=== PATIENT | male | born 1955 | race Hispanic/Latino ===

== ENCOUNTER 2017-11-06 20:02 | Observation (INO) | payer SELFPAY ==
[2017-11-06] MEDS ORDERED: ONDANSETRON 4 MG/2 ML VIAL ONE (20:40)
[2017-11-06] MEDS ORDERED: NA CHLORIDE 0.9% 1,000 ML ONE (20:40)
--- NOTE | 2017-11-06 20:56 | RAD REPORT ---
EXAM DESCRIPTION: RAD - Chest Single View - 11/06/2017 8:46 pm CLINICAL HISTORY: Abdominal pain COMPARISON: None. TECHNIQUE: AP portable chest image was obtained 2043 hours . FINDINGS: No mass, consolidation or vascular engorgement. Interstitial markings are prominent with b aseline for the patient unknown. Interstitial edema and interstitial infiltrate are certainly possibl e. Heart and vasculature are normal. No measurable pleural effusion and no pneumothorax. No gross bon y abnormality seen. No acute aortic findings suspected. IMPRESSION: No mass or consolidation. Prominent lung markings. As a baseline study, interstitial edema, infiltrate or early failure/ volume overload cannot be excluded.
[2017-11-06 21:21] LABS: Absolute Lymphocytes (CBC) 2.5 K/uL (0.7-4.9); Absolute Monocytes 0.5 K/uL (0.1-1.3); Absolute Neutrophil 2.9 K/uL (1.8-8.0); Basophils % 2.2 % (0-1.3); Eosinophils % 6.4 % (0-4.4); Lymphocytes % 38.5 % (15.3-44.8); MCH 29.5 pg (27.0-35.0); MCV 88.2 fL (80-100); MPV 8.6 fL (7.6-11.3); Monocytes % 7.9 % (3.3-12.3); RBC Red Blood Cell Count 5.22 M/uL (4.33-5.43)
[2017-11-06 21:23] LABS: Protime INR 1.06
[2017-11-06 21:29] LABS: ALT/SGPT 17 U/L (12-78); AST/SGOT 13 U/L (15-37); Albumin 3.2 g/dL (3.4-5.0); Alkaline Phosphatase 84 U/L (45-117); BUN Blood Urea Nitrogen 11 mg/dL (7-18); Bicarbonate 27 mmol/L (21-32); Bilirubin Direct < 0.1 mg/dL (0-0.2); Bilirubin Total 0.2 mg/dL (0.2-1.0); CKMB Creatine Kinase MB < 1.0 ng/mL (0.3-3.6); Creatine Phosphokinase 33 U/L (39-308); Glucose Level 83 mg/dL (74-106); Lipase 144 U/L (73-393); Magnesium 2.4 mg/dL (1.8-2.4); NT PRO-BNP 160 pg/mL (<125); Potassium 3.7 mmol/L (3.5-5.1); Protein, Total 7.3 g/dL (6.4-8.2); Sodium Level 142 mmol/L (136-145); Troponin (Emerg Dept Use Only) < 0.02 ng/mL (0.0-0.045)
[2017-11-06] MEDS ORDERED: ACETAMINOPHEN 500 MG TAB PO PRN (21:33)
[2017-11-06] MEDS ORDERED: MORPHINE 4 MG/ML SYR IV PRN (21:33)
[2017-11-06] MEDS ORDERED: ONDANSETRON 4 MG/2 ML VIAL IV PRN (21:33)
--- NOTE | 2017-11-06 21:57 | ER ---
Nurse's Notes [facility] Name: Kushal Bah Age: 61 yrs Sex: Male : 1955 Arrival Date: 11/06/2017 Time: 20:07 Bed 25 Private MD: Diagnosis: Abdominal tenderness;Cholelithiasis;Cholecystitis Presentation: 11/06 20:09 Presenting complaint: Patient states: He has been having RUQ abdominal pain that aj1 radiates to the back for the last couple of months. When the pain becomes severe he starts having nausea and vomiting. Patient has not seen his PHCP regarding this complaint. Reports the pain is intermittent and seems to come out of nowhere. Transition of care: patient was not received from another setting of care. Onset of symptoms was 2017. Risk Assessment: Do you want to hurt yourself or someone else? Patient reports no desire to harm self or others. Initial Sepsis Screen: Does the patient meet any 2 criteria? No. Patient's initial sepsis screen is negative. Does the patient have a suspected source of infection? No. Patient's initial sepsis screen is negative. Care prior to arrival: None. 20:09 Method Of Arrival: Ambulatory aj1 20:09 Acuity: MAGDA 3 aj1 Triage Assessment: 20:12 General: Appears in no apparent distress. uncomfortable, Behavior is calm, cooperative, aj1 appropriate for age. Pain: Complains of pain in right upper quadrant Pain does not radiate. Pain currently is 9 out of 10 on a pain scale. Neuro: Level of Consciousness is awake, alert, obeys commands. Cardiovascular: Patient's skin is warm and dry. Respiratory: Airway is patent Respiratory effort is even, unlabored, Respiratory pattern is regular, symmetrical. GI: Reports upper abdominal pain, nausea, vomiting. Historical: - Allergies: 20:12 No Known Allergies; aj1 - Home Meds: 20:12 None [Active]; aj1 - PMHx: 20:12 None; aj1 - PSHx: 20:12 None; aj1 - Immunization history:: Flu vaccine is not up to date. - Social history:: Smoking status: Patient uses tobacco products, 5 - 6 cigarettes perday. - Ebola Screening: : Patient denies travel to an Ebola-affected area in the 21 days before illness onset. - Family history:: not pertinent. Screenin:20 Abuse screen: Denies threats or abuse. Denies injuries from another. Nutritional bp screening: No deficits noted. Tuberculosis screening: No symptoms or risk factors identified. Fall Risk None identified. Assessment: 20:15 General: Appears in no apparent distress. comfortable, Behavior is calm, cooperative, bp appropriate for age. Pain: Complains of pain in right upper quadrant. Neuro: Level of Consciousness is awake, alert, obeys commands, Oriented to person, place, time, situation, Appropriate for age. Cardiovascular: No deficits noted. Respiratory: Airway is patent Respiratory effort is even, unlabored, Respiratory pattern is regular, symmetrical. GI: Bowel sounds present X 4 quads. Abdomen is tender to palpation in right upper quadrant. : No signs and/or symptoms were reported regarding the genitourinary system. EENT: No deficits noted. Derm: No deficits noted. Musculoskeletal: Circulation, motion, and sensation intact. Range of motion: intact in all extremities. 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 bp 23:44 Reassessment: ADMIT IN PROCESS, SURG C/S PENDING. bp Vital Signs: 20:12 BP 122 / 71; Pulse 60; Resp 16; Temp 97.5(TE); Pulse Ox 95% on R/A; Weight 79.38 kg aj1 (R); Height 5 ft. 5 in. (165.10 cm); Pain 9/10; 21:18 BP 106 / 68; Pulse 43; Resp 14; Pulse Ox 96% ; bp 22:15 BP 107 / 80; Pulse 47; Resp 14; Pulse Ox 95% ; bp 23:45 BP 120 / 70; Pulse 57; Resp 14; Pulse Ox 95% ; bp 09/13 00:15 BP 103 / 66; Pulse 46; Resp 14; Pulse Ox 94% ; bp 09/12 20:12 Body Mass Index 29.12 (79.38 kg, 165.10 cm) aj1 ED Course: 11/06 20:07 Patient arrived in ED. al2 20:11 Triage completed. aj1 20:12 Arm band placed on Patient placed in an exam room. aj1 20:14 Bertin Bowling MD is Attending Physician. [facility] 20:15 Jeff Smart, CONOR is Primary Nurse. bp 20:30 Inserted saline lock: 20 gauge in left antecubital area, using aseptic technique. Blood bp collected. 20:45 XRAY Chest (1 view) In Process Unspecified. EDMS 21:20 Patient has correct armband on for positive identification. Bed in low position. Call bp light in reach. Side rails up X2. Adult w/ patient. 21:30 Ga Mota MD is Hospitalizing Provider. [facility] 22:02 Patient taken to ultrasound. 2 22:[address] via wheelchair. vm2 23:45 No provider procedures requiring assistance completed. Patient admitted, IV remains in bp place. Administered Medications: 20:30 Drug: NS 0.9% 1000 ml Route: IV; Rate: 1 bolus; Site: left antecubital; bp 22:00 Follow up: IV Status: Completed infusion; IV Intake: 1000ml bp 22:09 Follow up: IV Status: Completed infusion; IV Intake: 1000ml tl3 20:45 Drug: Zofran 4 mg Route: IVP; Site: left antecubital; bp 21:07 Follow up: Response: No adverse reaction bp 22:00 Drug: Zosyn 3.375 grams Route: IVPB; Infused Over: 60 mins; Site: left antecubital; bp 11/07 00:11 Follow up: IV Status: Completed infusion; IV Intake: 100ml bp 11/06 23:47 Not Given (Patient Refused): Pepcid 20 mg IVP once bp Intake: 22:00 IV: 1000ml; Total: 1000ml. bp 22:09 IV: 1000ml; Total: 2000ml. tl3 11/07 00:11 IV: 100ml; Total: 2100ml. bp Outcome: 11/06 21:31 Decision to Hospitalize by Provider. [facility] 23:45 Condition: stable bp 23:45 Instructed on the need for admit. 11/07 00:11 Admitted to Med/surg accompanied by tech, family with patient, via wheelchair, room bp 410, with chart, Report called to LEIA PERDOMO 00:44 Patient left the ED. tl3 Signatures: Dispatcher [employer] EDMS Maral Vera, RN RN aj1 Bertin Bowling MD MD cha McGuire, Victoria 2 Jeff Smart, Rachel Keene RN meHeavenly Green RN RN tl3
--- NOTE | 2017-11-06 21:58 | EDPHYS ---
Physician Documentation [facility] Name: Kushal Bah Age: 61 yrs Sex: Male : 1955 Arrival Date: 11/06/2017 Time: 20:07 Bed 25 Private MD: ED Physician Bertin Bowling HPI: 11/06 21:26 This 61 yrs old Male presents to ER via Ambulatory with complaints of cody Abdominal Pain. 21:26 The patient presents with abdominal pain in the epigastric area, in the upper abdomen, cody in the right upper quadrant. Onset: The symptoms/episode began/occurred 1 day(s) ago. The symptoms do not radiate. Associated signs and symptoms: none. The symptoms are described as constant, crampy. Modifying factors: The symptoms are alleviated by nothing, the symptoms are aggravated by movement, pressure, walking. Severity of pain: At its worst the pain was mild moderate in the emergency department the pain is unchanged. The patient has not experienced similar symptoms in the past. Historical: - Allergies: 20:12 No Known Allergies; aj1 - Home Meds: 20:12 None [Active]; aj1 - PMHx: 20:12 None; aj1 - PSHx: 20:12 None; aj1 - Immunization history:: Flu vaccine is not up to date. - Social history:: Smoking status: Patient uses tobacco products, 5 - 6 cigarettes perday. - Ebola Screening: : Patient denies travel to an Ebola-affected area in the 21 days before illness onset. - Family history:: not pertinent. ROS: 21:26 Constitutional: Negative for fever, chills, and weight loss, Eyes: Negative for injury, cody pain, redness, and discharge, ENT: Negative for injury, pain, and discharge, Neck: Negative for injury, pain, and swelling, Cardiovascular: Negative for chest pain, palpitations, and edema, Respiratory: Negative for shortness of breath, cough, wheezing, and pleuritic chest pain, Back: Negative for injury and pain, : Negative for injury, bleeding, discharge, and swelling, MS/Extremity: Negative for injury and deformity, Skin: Negative for injury, rash, and discoloration, Neuro: Negative for headache, weakness, numbness, tingling, and seizure, Psych: Negative for depression, anxiety, suicide ideation, homicidal ideation, and hallucinations, Allergy/Immunology: Negative for hives, rash, and allergies, Endocrine: Negative for neck swelling, polydipsia, polyuria, polyphagia, and marked weight changes, Hematologic/Lymphatic: Negative for swollen nodes, abnormal bleeding, and unusual bruising. 21:26 Abdomen/GI: Positive for abdominal pain, of the epigastric area and right upper quadrant. Exam: 21:26 Constitutional: This is a well developed, well nourished patient who is awake, alert, cody and in no acute distress. Head/Face: Normocephalic, atraumatic. Eyes: Pupils equal round and reactive to light, extra-ocular motions intact. Lids and lashes normal. Conjunctiva and sclera are non-icteric and not injected. Cornea within normal limits. Periorbital areas with no swelling, redness, or edema. ENT: Nares patent. No nasal discharge, no septal abnormalities noted. Tympanic membranes are normal and external auditory canals are clear. Oropharynx with no redness, swelling, or masses, exudates, or evidence of obstruction, uvula midline. Mucous membranes moist. Neck: Trachea midline, no thyromegaly or masses palpated, and no cervical lymphadenopathy. Supple, full range of motion without nuchal rigidity, or vertebral point tenderness. No Meningismus. Chest/axilla: Normal chest wall appearance and motion. Nontender with no deformity. No lesions are appreciated. Cardiovascular: Regular rate and rhythm with a normal S1 and S2. No gallops, murmurs, or rubs. Normal PMI, no JVD. No pulse deficits. Respiratory: Lungs have equal breath sounds bilaterally, clear to auscultation and percussion. No rales, rhonchi or wheezes noted. No increased work of breathing, no retractions or nasal flaring. Back: No spinal tenderness. No costovertebral tenderness. Full range of motion. Male : Normal genitalia with no discharge or lesions. Skin: Warm, dry with normal turgor. Normal color with no rashes, no lesions, and no evidence of cellulitis. MS/ Extremity: Pulses equal, no cyanosis. Neurovascular intact. Full, normal range of motion. Neuro: Awake and alert, GCS 15, oriented to person, place, time, and situation. Cranial nerves II-XII grossly intact. Motor strength 5/5 in all extremities. Sensory grossly intact. Cerebellar exam normal. Normal gait. Psych: Awake, alert, with orientation to person, place and time. Behavior, mood, and affect are within normal limits. 21:26 Abdomen/GI: Inspection: distension, Bowel sounds: normal, Palpation: mild abdominal tenderness, moderate abdominal tenderness, in the right upper quadrant. Vital Signs: 20:12 BP 122 / 71; Pulse 60; Resp 16; Temp 97.5(TE); Pulse Ox 95% on R/A; Weight 79.38 kg aj1 (R); Height 5 ft. 5 in. (165.10 cm); Pain 9/10; 21:18 BP 106 / 68; Pulse 43; Resp 14; Pulse Ox 96% ; bp 22:15 BP 107 / 80; Pulse 47; Resp 14; Pulse Ox 95% ; bp 23:45 BP 120 / 70; Pulse 57; Resp 14; Pulse Ox 95% ; bp 11/07 00:15 BP 103 / 66; Pulse 46; Resp 14; Pulse Ox 94% ; bp 11/06 20:12 Body Mass Index 29.12 (79.38 kg, 165.10 cm) [facility] MDM: 11/06 20:14 Patient medically screened. [facility] 21:29 Data reviewed: vital signs, nurses notes, lab test result(s), EKG, radiologic studies, [facility] CT scan, plain films. 11/06 20:19 Order name: Basic Metabolic Panel; Complete Time: 21:30 [facility] 11/06 20:19 Order name: CBC with Diff; Complete Time: 21:30 [facility] 11/06 20:19 Order name: Ckmb; Complete Time: 21:30 [facility] 11/06 20:19 Order name: CPK; Complete Time: 21:30 [facility] 11/06 20:19 Order name: LFT's; Complete Time: 21:30 [facility] 11/06 20:19 Order name: Magnesium; Complete Time: 21:30 [facility] 11/06 20:19 Order name: NT PRO-BNP; Complete Time: 21:30 [facility] 11/06 20:19 Order name: PT-INR; Complete Time: 21:30 [facility] 11/06 20:19 Order name: Ptt, Activated; Complete Time: 21:30 [facility] 11/06 20:19 Order name: Troponin (emerg Dept Use Only); Complete Time: 21:30 [facility] 11/06 20:19 Order name: Lipase; Complete Time: 21:30 [facility] 11/06 20:19 Order name: Urine Culture [facility] 11/06 21:01 Order name: Urine Dipstick--Ancillary (enter results) [place] 11/06 21:35 Order name: Basic Metabolic Panel [facility] 11/06 20:19 Order name: XRAY Chest (1 view); Complete Time: 21:30 [facility] 11/06 20:19 Order name: EKG; Complete Time: 20:20 [facility] 11/06 20:19 Order name: CT Abd/Pelvis - W/Contrast [facility] 11/06 20:56 Order name: US Abdomen Limited [facility] 11/06 21:35 Order name: Basic Metabolic Panel [facility] 11/06 21:35 Order name: CBC with Automated Diff [facility] 11/06 21:35 Order name: CBC with Automated Diff [facility] 11/06 21:35 Order name: Lipase [facility] 11/06 21:35 Order name: Lipase [facility] 11/06 21:35 Order name: Liver (Hepatic) Function [facility] 11/06 21:35 Order name: Liver (Hepatic) Function [facility] 11/06 22:18 Order name: Urine Dipstick-Ancillary [facility] 11/06 20:19 Order name: Cardiac monitoring; Complete Time: 21:08 [facility] 11/06 20:19 Order name: EKG - Nurse/Tech; Complete Time: 21:08 [facility] 11/06 20:19 Order name: IV Saline Lock; Complete Time: 21:08 [facility] 11/06 20:19 Order name: Labs collected and sent; Complete Time: 21:08 [facility] 11/06 20:19 Order name: O2 Per Protocol; Complete Time: 21:08 [facility] 11/06 20:19 Order name: O2 Sat Monitoring; Complete Time: 21:08 [facility] 11/06 20:19 Order name: Urine Dipstick-Ancillary (obtain specimen); Complete Time: 21:08 [facility] 11/06 21:35 Order name: NPO EDMS Administered Medications: 20:30 Drug: NS 0.9% 1000 ml Route: IV; Rate: 1 bolus; Site: left antecubital; bp 22:00 Follow up: IV Status: Completed infusion; IV Intake: 1000ml bp 22:09 Follow up: IV Status: Completed infusion; IV Intake: 1000ml tl3 20:45 Drug: Zofran 4 mg Route: IVP; Site: left antecubital; bp 21:07 Follow up: Response: No adverse reaction bp 22:00 Drug: Zosyn 3.375 grams Route: IVPB; Infused Over: 60 mins; Site: left antecubital; bp 11/07 00:11 Follow up: IV Status: Completed infusion; IV Intake: 100ml bp 11/06 23:47 Not Given (Patient Refused): Pepcid 20 mg IVP once bp Disposition: 11/06/17 21:31 Hospitalization ordered by Ga Mota for Observation. Preliminary diagnosis are Abdominal tenderness, Cholelithiasis, Cholecystitis. - Bed requested for Telemetry/MedSurg (observation). - Status is Observation. tl3 - Condition is Stable. - Problem is new. - Symptoms have improved. UTI on Admission? No Signatures: Dispatcher [employer] EDMS Maral Vera RN RN aj1 Le Koch RN RN Bertin Loya MD MD cha Peltier, Brian RN RN Heavenly Vasquez RN RN tl3 Corrections: (The following items were deleted from the chart) 22:20 21:31 Hospitalization Ordered by Ga Mota MD for Observation. Preliminary diagnosis is Abdominal tenderness; Cholelithiasis; Cholecystitis. Bed requested for Telemetry/MedSurg (observation). Status is Observation. Condition is Stable. Problem is new. Symptoms have improved. UTI on Admission? No. [facility] 11/07 00:44 11/06 22:20 11/06/2017 21:31 Hospitalization Ordered by Ga Mota MD for tl3 Observation. Preliminary diagnosis is Abdominal tenderness; Cholelithiasis; Cholecystitis. Bed requested for Telemetry/MedSurg (observation). Status is Observation. Condition is Stable. Problem is new. Symptoms have improved. UTI on Admission? No. mw
[2017-11-06 22:17] LABS: Urine Blood NEGATIVE (NEG); Urine Glucose NEGATIVE (NEG); Urine Protein NEGATIVE (NEG)
[2017-11-06] MEDS ORDERED: PIPER/TAZO/NS 3.375gm 3.375 GM/100 ML BAG ONE (23:44)
[2017-11-07] MEDS: NA CHLORIDE 0.9% 1,000 ML IV SCH ×3 (01:22→09:46)
[2017-11-07 02:59] VITALS: BMI 29.1
[2017-11-07 04:30] LABS: Absolute Lymphocytes (CBC) 2.9 K/uL (0.7-4.9); Absolute Monocytes 0.4 K/uL (0.1-1.3); Absolute Neutrophil 2.6 K/uL (1.8-8.0); Basophils % 0.6 % (0-1.3); Eosinophils % 6.4 % (0-4.4); Hematocrit 42.1 % (39.6-49.0); Lymphocytes % 45.7 % (15.3-44.8); MCH 29.3 pg (27.0-35.0); MCV 87.2 fL (80-100); MPV 8.4 fL (7.6-11.3); Monocytes % 6.2 % (3.3-12.3); RBC Red Blood Cell Count 4.83 M/uL (4.33-5.43)
[2017-11-07 04:47] LABS: ALT/SGPT 15 U/L (12-78); AST/SGOT 10 U/L (15-37); Albumin 2.8 g/dL (3.4-5.0); Alkaline Phosphatase 68 U/L (45-117); BUN Blood Urea Nitrogen 8 mg/dL (7-18); Bicarbonate 25 mmol/L (21-32); Bilirubin Direct < 0.1 mg/dL (0-0.2); Bilirubin Total 0.2 mg/dL (0.2-1.0); Glucose Level 87 mg/dL (74-106); Lipase 98 U/L (73-393); Protein, Total 6.2 g/dL (6.4-8.2); Sodium Level 141 mmol/L (136-145)
[2017-11-07] MEDS: PIPER/TAZO/NS 3.375gm 3.375 GM/100 ML BAG IVPB SCH ×4 (06:00→17:42)
[2017-11-07] MEDS ORDERED: PIPER/TAZO/NS 3.375gm 3.375 GM/100 ML BAG ONE (06:51)
--- NOTE | 2017-11-07 08:11 | RAD REPORT ---
EXAM DESCRIPTION: CT - Abdomen Pelvis W Contrast - 11/07/2017 5:22 am CLINICAL HISTORY: Abdominal pain. Right upper quadrant pain with vomiting COMPARISON: None. TECHNIQUE: Computed axial tomography of the abdomen and pelvis was obtained. 100 cc Isovue-300 is ad ministered intravenously. Oral contrast was given. Preliminary report was generated by [employer] and reviewed prior to this dictation All CT scans are performed using dose optimization technique as appropriate and may include automated exposure control or mA/KV adjustment according to patient size. FINDINGS: A gallstone is present within the neck of the gallbladder. Mild gallbladder wall thickening is seen w ith mild stranding in the adjacent fat. The biliary tree is normal caliber The liver, spleen, pancreas, adrenals and kidneys appear unremarkable. The appendix is normal caliber. There is no evidence of diverticulitis Small bilateral inguinal hernias contain fat. Mild anterior subluxation of L5 on S1 is seen. Spondylo lysis is present at L5. IMPRESSION: Cholelithiasis. Mild gallbladder wall thickening and mild stranding within the adjacent probably indicates cholecystitis
--- NOTE | 2017-11-07 08:13 | RAD REPORT ---
EXAM DESCRIPTION: US - Abdomen Exam Limited - 11/06/2017 10:28 pm CLINICAL HISTORY: Abdominal pain. COMPARISON: None. FINDINGS: A stone appears lodged within the gallbladder neck. Mild gallbladder wall thickening is se en. The biliary tree is normal caliber. IMPRESSION: Cholelithiasis. Mild gallbladder wall thickening may indicate cholecystitis
[2017-11-07] MEDS: FAMOTIDINE 20 MG/2 ML VIAL IV SCH (09:47)
--- NOTE | 2017-11-07 11:06 | EKG ---
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
--- NOTE | 2017-11-07 17:40 | P.HP ---
Date of Service: 11/07/17 PC: This 61-year-old male presented emergency room severe right upper quadrant abdominal pain for diagnosis and treatment. HPC: Patient been experiencing some right upper quadrant abdominal pain, radiating into his back, after eating a meal this evening. Pain became very severe, radiating to his back, was unrelenting. 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 No chest pain or palpitations. Denies any urinary complaints. Good exercise tolerance O/E awake alert comfortable at the moment HEENT: Not jaundice Chest: Chest movement is equal bilaterally ABD: Mild right upper quadrant tenderness LOCO: Into DATA: Has documented gallstones on ultrasound with stone near the neck of the gallbladder IMPRESSION: Cholecystitis with cholelithiasis PLAN: I will take him to the operating room for a laparoscopic possible open cholecystectomy with intraoperative cholangiogram. The risks of this procedure have been discussed. The possibility of bleeding, infection, injury to bile ducts blood vessels and intestines has been described. The possible need for an open and/or further surgeries and procedures was outlined. He understands and wants us to proceed.
[2017-11-08] MEDS: NA CHLORIDE 0.9% 1,000 ML IV SCH ×4 (02:19→22:05)
[2017-11-08] MEDS: FAMOTIDINE 20 MG/2 ML VIAL IV SCH ×3 (02:19→22:05)
[2017-11-08] MEDS: PIPER/TAZO/NS 3.375gm 3.375 GM/100 ML BAG IVPB SCH ×4 (02:19→17:00)
[2017-11-08] MEDS ORDERED: PROPOFOL 200 MG/20 ML VIAL IV ONE (07:19)
[2017-11-08] MEDS ORDERED: MIDAZOLAM HCL 2 MG/2 ML INJ ONE (07:19)
[2017-11-08] MEDS ORDERED: GLYCOPYRROLATE 0.2 MG/ML SYR ONE (07:20)
[2017-11-08] MEDS ORDERED: FENTANYL CITR 250 MCG/5 ML ONE (07:20)
[2017-11-08] MEDS ORDERED: LIDOCAINE 2% MPF 5 ML VIAL ONE (07:20)
[2017-11-08] MEDS ORDERED: Ringers Lactate 1,000 ML IV ONE (07:21)
[2017-11-08] MEDS ORDERED: BUPIVACAINE 0.5% PF 10 ML VIAL ONE (07:24)
[2017-11-08] MEDS: Ringers Lactate 1,000 ML IV ONE ×2 (08:45→10:40)
[2017-11-08] MEDS ORDERED: ONDANSETRON 4 MG/2 ML VIAL ONE (09:07)
[2017-11-08] MEDS ORDERED: ROCURONIUM 50 MG/5 ML VIAL IV ONE (09:07)
[2017-11-08] MEDS ORDERED: MEPERIDINE HCL 50 MG/ML AMP ONE (09:51)
[2017-11-08] MEDS ORDERED: HYDROCODONE/APAP 5/325 MG TAB PO PRN (13:23)
--- NOTE | 2017-11-08 14:58 | RAD REPORT ---
EXAM DESCRIPTION: RAD - Cholangiogram Oper-Xray Or - 11/08/2017 2:49 pm FINDINGS: Single image was submitted from an intraoperative cholangiogram. Contrast opacified common bile duct shows no duct stone, stricture or mass. There is small amount of spill or contrast leakage at the injection site into the cystic duct. Fluoro time was 0.2 minutes.
[2017-11-09] MEDS: NA CHLORIDE 0.9% 1,000 ML IV SCH ×2 (01:14→14:00)
[2017-11-09] MEDS: PIPER/TAZO/NS 3.375gm 3.375 GM/100 ML BAG IVPB SCH ×2 (01:14→11:12)
[2017-11-09] MEDS: FAMOTIDINE 20 MG/2 ML VIAL IV SCH (11:12)
[2017-11-09 12:53] VITALS: BP 122/67; TEMP 98.3
--- NOTE | 2017-11-09 13:41 | P.PN ---
Date of Service: 11/09/17 S: Patient feels better today, has been up and ambulating, tolerating a diet. Complaints. O: Vital signs are stable A: Stable status post laparoscopic cholecystectomy with cholangiogram P: Discharge home
[2017-11-09 16:16] VITALS: O2SAT 93
== END 2017-11-09 15:36 | disposition home or self-care (01) ==
LOC: ER 20:02 → ERHOLD 21:32 → 4TH 11-07 00:04
PROVIDERS: ADMIT Surgery; ATTEND Surgery
PROC: BF00YZZ Plain Radiography of Bile Ducts using Other Contrast (ICD-10-PCS; 2017-11-08)
PROC: 0FT44ZZ Resection of Gallbladder, Percutaneous Endoscopic Approach (ICD-10-PCS; principal; 2017-11-08 07:30)
DX: K80.10 Calculus of gallbladder with chronic cholecystitis without obstruction (principal)
CPT/HCPCS: 36415; 71045; 74177; 74300; 76705; 80048; 80076; 81003; 82550; 82553; 82962; 83690; 83735; 83880; 84484; 85025; 85610; 85730; 87086; 87088; 88304; 93005; 96361; 96365; 96366; 96375; 99285; G0378; J2175; J2250; J2405; J2543; J7030; Q9967

== ENCOUNTER 2023-10-25 16:53 | Emergency (ER) | payer OTHER ==
--- OUTSIDE RECORDS SUMMARY | 2023-10-25 16:58 | XMS REPORT | Continuity of Care Document ---
Author Name Unknown Address [address] [facility] [address] [place] [address] [facility] thconnect Address [address] [place] [address] Care Team Providers Care Engine Lathe Set Up Operator Tool Name Role Phone George Castillo NP Primary Care Physician [phone] SOCORRO KHANNA Attending Clinician Unavailable Doctor Unassigned, [place] Attending Clinician U Socorro Fabian MD Attending Clinician [phone] GEORGE CASTILLO Attending Clinician UnavailGEORGE Thayer Attending Clinician UnavailEUSEBIA Echeverria Attending Clinician UnavailEusebia Pandya Attending Clinician [phone] ALONZO HUANG Attending Clinician Unavailable Alonzo Huang DO Attending Clinician [phone] SOCORRO KHANNA Admitting Clinician Unavailable ALONZO HUANG Admitting Clinician Unavailable Payers Payer Name Policy Type Policy Number Effective Date Expirati on Date Source MEDICARE PART A \T\ B [id number] 2020 00:00:00 Problems Condition Name Condition Details Condition Category Status Onset Date Resolution Date Last Treatment Date Treating Clinician Comments Source Other open displaced fracture of tuberosity of left calcaneus, initial encounter Other open displaced fracture of tuberosity of left calcaneus, initial encounter Disease Active 09-04 00:00: 00 Overview: Formattin g of this note might be different from the original. Added automatic ally from request for surgery [id number] [facility] Closed nondisplac ed fracture of left calcaneus, unspecifie d portion of calcaneus, initial encounter Closed nondisplac ed fracture of left calcaneus, unspecifie d portion of calcaneus, initial encounter Disease Active 08-19 00:00: 00 [facility] Foot infection Foot infection Disease Active 08-19 00:00: 00 [facility] Allergies, Adverse Reactions, Alerts Allergy Name Allergy Type Status Severity Reaction(s) Onset Date Inactive Date Treating Clinician Comments Source NO KNOWN ALLERGIE S Drug Class Active [facility] Social History Social Habit Start Date Stop Date Quantity Comments Source History of tobacco use Smokes tobacco daily [facility] SDOH Alcohol Frequency [facility] History SDOH Alcohol Std Drinks [facility] History SDOH Alcohol Binge [facility] Exposure to SARS-CoV-2 (event) 2021-08-22 00:00:00 2021-09-01 14:24:00 Not sure [facility] History of Social function 2021-09-01 00:00:00 2021-09-01 00:00:00 [facility] Alcohol intake 2021-09-01 00:00:00 2021-09-01 00:00:00 Current drinker of alcohol (finding) [facility] Tobacco use and exposure 2021-08-18 00:00:00 2021-08-18 00:00:00 Smokeless tobacco non-user [facility] Alcohol Comment 2021-08-18 00:00:00 2021-08-18 00:00:00 occasionally [facility] Tobacco Comment 2021-08-18 00:00:00 2021-08-18 00:00:00 3-4 ciggs a day [facility] Sex Ass[birth year] At 1955 00:00:00 1955 00:00:00 [facility] Smoking Status Start Date Stop Date Source Smokes tobacco daily 2021-08-18 00:00:00 [facility] Medications Ordered Medication Name Filled Medication Name Start Date Stop Date Current Medication? Ordering Clinician Indication Dosage Frequency Signature (SIG) Comments Components Source mupirocin 2 % ointment 08-18 00:00: 00 Yes [id number] Apply to area(s) 3 (three) times daily. [facility] sulfamethox azole-trime thoprim (BACTRIM DS) 800-160 mg per tablet 08-18 00:00: 00 Yes [id number] 1{tbl} Take 1 tablet by mouth 2 (two) times daily. [facility] Vital Signs Vital Name Observation Time Observation Value Comments S alvarado Diastolic blood pressure 2021-09-01 19:28:00 65 mm[Hg] [facility] Heart rate 2021-09-01 19:28:00 67 /min [facility] Body temperature 2021-09-01 19:28:00 35.94 Ita [facility] Body height 2021-09-01 19:28:00 167.6 cm [facility] Body weight 2021-09-01 19:28:00 72.576 kg [facility] BMI 2021-09-01 19:28:00 25.82 kg/m2 [facility] Systolic blood pressure 2021-09-01 19:28:00 107 mm[Hg] [place] [facility] Procedures Procedure Date / Time Performed Performing Clinicia n Source REFERRAL- REQUEST/RESPONSE 2023-01-07 06:01:00 Doctor Unassigned, [place] [facility] Encounters Start Date/Time End Date/Time Encounter Type Admission Type Attending Clinicians Care Facility Care Department Encounter ID Source 2021-09-04 07:52:04 Outpatient SOCORRO NEFF [facility] SOR [id number] [facility] 2023-02-08 10:50:54 2023-02-08 10:50:54 Outpatient [facility] [id number] Jamaal Jose 2023-01-07 11:34:27 2023-01-07 11:34:27 Outpatient [facility] [id number] Jamaal Jose 2023-01-07 00:00:00 2023-01-07 00:00:00 Orders Only Doctor Unassigned, [place] [facility] 1..840.114 [id number] [id number] [facility] 2022-12-27 11:13:42 2022-12-27 11:13:42 Outpatient [facility] [id number] Jamaal Jose 2021-09-01 14:42:37 2021-09-01 23:59:00 [id number] 2021-09-01 14:42:37 2021-09-01 23:59:00 Hospital Encounter [facility] 1..840.114 [id number] [id number] [facility] 2021-09-01 14:20:00 2021-09-01 15:43:40 Office Visit [facility] 1..840.114 [id number] [facility] 2021-09-01 14:20:00 2021-09-01 14:20:00 Outpatient R SOCORRO KHANNA [facility] [id number] [facility] 2021-09-01 11:00:00 2021-09-01 11:00:00 Outpatient R GEORGE CASTILLO OGECHUKWU [facility] [id number] [facility] 2021-08-18 10:00:00 2021-08-18 11:12:53 Outpatient R GEORGE CASTILLO OGECHUKWU [facility] [id number] [facility] 2021-08-18 10:00:00 2021-08-18 11:12:53 Office Visit George Castillo [facility] 1..840.114 [id number] [id number] [facility] 2021-08-18 10:00:00 2021-08-18 11:12:53 Outpatient R JONATHAN, GEORGE CASTILLO, GEORGE [facility] [id number] [facility] 2021-08-16 11:55:00 2021-08-16 12:49:00 Emergency X EUSEBIA BOSWELL [facility] ERT [id number] [facility] 2021-08-16 11:55:00 2021-08-16 12:49:00 [facility] [id number] [facility] 2021-08-16 11:55:00 2021-08-16 12:49:00 [facility] [id number] [facility] 2021-08-07 13:18:00 2021-08-07 15:27:00 Emergency X ALONZO HUANG [facility] ERT [id number] [facility] 2021-08-07 13:18:00 2021-08-07 15:27:00 Emergency Alonzo Huang [facility] [id number] [facility] Results Test Description Test Time Test Comments Results Result Co mments Source
[2023-10-25] MEDS ORDERED: HYDROCODONE/APAP 5/325 MG TAB ONE (17:33)
--- NOTE | 2023-10-25 18:41 | RAD REPORT ---
EXAM DESCRIPTION: RAD - Knee Left 3 View - 10/25/2023 6:30 pm CLINICAL HISTORY: PAIN COMPARISON: No comparisons FINDINGS: No fracture or dislocation is seen. Small amount of fluid suprapatellar joint fluid.
--- NOTE | 2023-10-25 19:39 | EDPHYS ---
Physician Documentation [facility] Name: Kushal Hernandez Age: 67 yrs Sex: Male : 1955 Arrival Date: 10/25/2023 Time: 16:53 Bed 9 Private MD: ED Physician Mat Summers HPI: 10/24 17:13 This 67 yrs old Male presents to ER via Unassigned with complaints of Leg Pain.ms3 17:13 67-year-old male with no past medical history presents to the emergency department for ms3 left knee pain status post slipping at 345. Patient states pain is moderate. He denies any alleviating factors. He states the pain is worse with movement of his knee or ambulation.. Historical: - Allergies: 17:21 No Known Allergies; db - PMHx: 17:21 None; db - Immunization history:: Adult Immunizations unknown. - Infectious Disease History:: Denies. - Social history:: Smoking status: Patient reports the use of cigarette tobacco products, smokes one-half pack cigarettes per day. ROS: 17:13 Constitutional: Negative for fever, and chills. Cardiovascular: Negative for chest ms3 pain, and palpitations. Respiratory: Negative for shortness of breath, cough, wheezing, and pleuritic chest pain, Abdomen/GI: Negative for abdominal pain, nausea, vomiting, diarrhea, and constipation, 17:13 MS/extremity: Positive for Left knee pain, Exam: 17:13 Constitutional: This is a well developed, well nourished patient who is awake, alert, ms3 and in no acute distress. Head/Face: Normocephalic, atraumatic. Cardiovascular: Regular rate and rhythm with a normal S1 and S2. No gallops, murmurs, or rubs. Normal PMI, no JVD. No pulse deficits. Respiratory: Lungs have equal breath sounds bilaterally, clear to auscultation and percussion. No rales, rhonchi or wheezes noted. No increased work of breathing, no retractions or nasal flaring. Abdomen/GI: Soft, non-tender, with normal bowel sounds. No distension or tympany. No guarding or rebound. No evidence of tenderness throughout. 17:13 Musculoskeletal/extremity: Extremities: noted in the Left knee: pain, tenderness, There is no evidence of deformity, Joints: the Left knee displays tenderness, Vital Signs: 17:22 BP 111 / 79; Pulse 72; Resp 16; Temp 97.6; Pulse Ox 96% ; Weight 94.35 kg; Height 5 ft. db 6 in. ; 19:32 BP 134 / 77; Pulse 74; Resp 18; Temp 98.6; Pulse Ox 99% on R/A; Height 5 ft. 6 in. ; ar6 Pain 8/10; 19:47 BP 136 / 74; Pulse 77; Resp 18; Pulse Ox 99% on R/A; ar6 17:22 Body Mass Index 33.57 (94.35 kg, 167.64 cm) db 19:32 Pain Scale: Adult ar6 MDM: 17:12 Patient medically screened. ms3 17:13 Differential diagnosis: closed fracture, contusion, tendonitis. ms3 21:23 Data reviewed: vital signs, nurses notes, and as a result, I will discharge patient. I ms3 considered the following discharge prescriptions or medication management in the emergency department Medications were administered in the Emergency Department. See MAR. Counseling: I had a detailed discussion with the patient and/or guardian regarding the historical points, exam findings, and any diagnostic results supporting the discharge/admit diagnosis, radiology results, the need for outpatient follow up, to return to the emergency department if symptoms worsen or persist or if there are any questions or concerns that arise at home. Special discussion: I discussed with the patient/guardian in detail that at this point there is no indication for admission to the hospital. It is understood, however, that if the symptoms persist or worsen the patient needs to return immediately for re-evaluation. ED course: Discussed radiographs with patient. Patient to follow-up with Dr. Price in 2 to 3 days. Patient placed in knee immobilizer and given crutches. Patient understands and agrees with plan. All questions were answered. Return precautions discussed include worsening symptoms, or any other concerns. On reevaluation patient without compartment syndrome in left leg. 10/24 17:13 Order name: Knee Left 3 View XRAY; Complete Time: 19:08 ms3 10/24 19:10 Order name: Knee Immobilizer; Complete Time: 19:50 ms3 10/24 19:10 Order name: Crutches; Complete Time: 19:50 ms3 Administered Medications: 17:35 Drug: HYDROcodone-acetaminophen PO 5 mg-325 mg 1 tabs PO once Route: PO; db 18:12 Follow up: Response: No adverse reaction; Pain is decreased db 19:37 Follow up: Response: No adverse reaction; Pain is decreased ar6 19:50 Follow up: Response: No adverse reaction; Pain is decreased ar6 Disposition Summary: 10/25/23 19:39 Discharge Ordered Notes: Location: Home ms3 Condition: Stable ms3 Diagnosis - Pain in left knee ms3 Followup: ms3 - With: Davi Price MD - When: 2 - 3 days - Reason: Recheck today's complaints Discharge Instructions: - Discharge Summary Sheet ms3 - Acute Knee Pain, Adult ms3 Forms: - Medication Reconciliation Form ms3 - Antibiotic Education ms3 - Prescription Opioid Use ms3 - Patient Portal Instructions ms3 - Leadership Thank You Letter ms3 - Work release form ar6 Signatures: Dispatcher [employer] Mat Snell DO DO ms3 Karon Zhu RN RN db Roberts, Amber RN ar6
--- NOTE | 2023-10-25 19:39 | ER ---
Nurse's Notes [facility] Name: Kushal Hernandez Age: 67 yrs Sex: Male : 1955 Arrival Date: 10/25/2023 Time: 16:53 Bed 9 Private MD: Diagnosis: Pain in left knee Presentation: 10/24 17:20 Chief complaint: Patient states: LEFT KNEE PAIN SLIPPED AND FELL TODAY AT WORK. db Coronavirus screen: Client denies travel out of the [place] in the last 14 days. At this time, the client does not indicate any symptoms associated with coronavirus-19. Ebola Screen: Patient negative for fever greater than or equal to 101.5 degrees Fahrenheit, and additional compatible Ebola Virus Disease symptoms Patient denies exposure to infectious person. Patient denies travel to an Ebola-affected area in the 21 days before illness onset. No symptoms or risks identified at this time. Initial Sepsis Screen: Does the patient meet any 2 criteria? No. Patient's initial sepsis screen is negative. Does the patient have a suspected source of infection? No. Patient's initial sepsis screen is negative. Risk Assessment: Do you want to hurt yourself or someone else? Patient reports no desire to harm self or others. Onset of symptoms was October 25, 2023. 17:20 Method Of Arrival: Wheelchair db 17:20 Acuity: MAGDA 4 db Triage Assessment: 17:21 General: Appears in no apparent distress. comfortable, Behavior is calm, cooperative. db Pain: Complains of pain in left leg. Musculoskeletal: Range of motion: limited in left knee. Historical: - Allergies: 17:21 No Known Allergies; db - PMHx: 17:21 None; db - Immunization history:: Adult Immunizations unknown. - Infectious Disease History:: Denies. - Social history:: Smoking status: Patient reports the use of cigarette tobacco products, smokes one-half pack cigarettes per day. Screenin:32 [facility] ED Fall Risk Assessment (Adult) History of falling in the last 3 months, ar6 including since admission No falls in past 3 months (0 pts) Confusion or Disorientation No (0 pts) Intoxicated or Sedated No (0 pts) Impaired Gait No (0 pts) Mobility Assist Device Used No (0 pt) Altered Elimination No (0 pt) Score/Fall Risk Level 0 - 2 = Low Risk Oriented to surroundings, Maintained a safe environment, Educated pt \T\ family on fall prevention, incl call for assistance when getting out of bed, Hourly rounding (assess needs \T\ fall precautionary measures) done. Abuse screen: Denies threats or abuse. Denies injuries from another. Nutritional screening: No deficits noted. Tuberculosis screening: No symptoms or risk factors identified. Assessment: 19:32 General: Appears in no apparent distress. uncomfortable, Behavior is calm, cooperative, ar6 appropriate for age. Pain: Complains of pain in left leg Also complains of limping when walking. Neuro: Level of Consciousness is awake, alert, obeys commands, Oriented to person, place, time, situation. Cardiovascular: Capillary refill < 3 seconds. Respiratory: Airway is patent. GI: Abdomen is flat, non-distended. : No signs and/or symptoms were reported regarding the genitourinary system. EENT: Oral mucosa is moist. Derm: Skin is intact, is healthy with good turgor, Skin is dry, Skin is pink, warm \T\ dry. Skin temperature is warm. Musculoskeletal: Reports pain in left leg. Vital Signs: 17:22 BP 111 / 79; Pulse 72; Resp 16; Temp 97.6; Pulse Ox 96% ; Weight 94.35 kg; Height 5 ft. db 6 in. ; 19:32 BP 134 / 77; Pulse 74; Resp 18; Temp 98.6; Pulse Ox 99% on R/A; Height 5 ft. 6 in. ; ar6 Pain 8/10; 19:47 BP 136 / 74; Pulse 77; Resp 18; Pulse Ox 99% on R/A; ar6 17:22 Body Mass Index 33.57 (94.35 kg, 167.64 cm) db 19:32 Pain Scale: Adult ar6 ED Course: 16:57 Patient arrived in ED. im 17:02 Mat Summers DO is Attending Physician. ms3 17:21 Triage completed. db 17:21 Arm band placed on left wrist. Patient placed in waiting room. db 18:32 Knee Left 3 View XRAY In Process Unspecified. EDMS 19:32 Felisha Andrews, RN is Primary Nurse. ar6 19:32 No apparent distress. Awaiting disposition. ar6 19:32 Patient has correct armband on for positive identification. Bed in low position. Call ar6 light in reach. Side rails up X 1. Provided Education on: crutches and leg immobilizer. Pulse ox on. NIBP on. Door closed. Noise minimized. Lights dimmed. Warm blanket given. Head of bed lowered. 19:32 Assisted provider with: leg splint \T\ crutches. Patient did not have IV access during ar6 this emergency room visit. 19:38 Davi Barreto MD is Referral Physician. ms3 Administered Medications: 17:35 Drug: HYDROcodone-acetaminophen PO 5 mg-325 mg 1 tabs PO once Route: PO; db 18:12 Follow up: Response: No adverse reaction; Pain is decreased db 19:37 Follow up: Response: No adverse reaction; Pain is decreased ar6 19:50 Follow up: Response: No adverse reaction; Pain is decreased ar6 Medication: 19:32 VIS not applicable for this client. ar6 Outcome: 19:39 Discharge ordered by MD. ms3 19:51 Discharged to home ambulatory, ar6 19:51 Condition: good 19:51 Discharge instructions given to patient, family, Instructed on discharge instructions, follow up and referral plans. Demonstrated understanding of instructions, follow-up care, 19:51 Patient left the ED. ar6 Signatures: Dispatcher [employer] EDMS Mat uSmmers DO DO ms3 Karon Zhu, RN RN Joycelyn Singh Amber RN RN ar6
[2023-10-25 19:58] VITALS: TEMP 98.6; O2SAT 99
[2023-10-25 19:59] VITALS: BP 136/74
== END 2023-10-25 19:51 | disposition home or self-care (01) ==
LOC: ER 16:53
DX: M25.562 Pain in left knee (principal); F17.210 Nicotine dependence, cigarettes, uncomplicated
CPT/HCPCS: 99284

== ENCOUNTER 2024-01-31 11:01 | Emergency (ER) | payer OTHER ==
--- NOTE | 2024-01-31 12:46 | ER ---
Nurse's Notes [facility] Name: Kushal Hernandez Age: 68 yrs Sex: Male : 1955 Arrival Date: 01/31/2024 Time: 11:01 Bed 12 Private MD: Diagnosis: Knee pain Presentation: 01/30 11:17 Chief complaint: Patient states: in October i fell , they said it wasn't broken, when iw I'm working my knee gives out , it still hurts and is swollen. Coronavirus screen: At this time, the client does not indicate any symptoms associated with coronavirus-19. Ebola Screen: No symptoms or risks identified at this time. Initial Sepsis Screen: Does the patient meet any 2 criteria? No. Patient's initial sepsis screen is negative. Does the patient have a suspected source of infection? No. Patient's initial sepsis screen is negative. Risk Assessment: Do you want to hurt yourself or someone else? Patient reports no desire to harm self or others. Onset of symptoms was October 2023. 11:17 Method Of Arrival: Ambulatory iw 11:17 Acuity: MAGDA 4 iw Historical: - Allergies: 11:20 No Known Allergies; iw - Home Meds: 11:20 None [Active]; iw - PMHx: 11:20 None; iw - PSHx: 11:20 Cholecystectomy; iw - Social history:: Smoking status: . Screenin:47 [facility] ED Fall Risk Assessment (Adult) History of falling in the last 3 months, ss including since admission. Abuse screen: Denies threats or abuse. Denies injuries from another. Nutritional screening: No deficits noted. Tuberculosis screening: Never had TB. Assessment: 11:20 General: Appears in no apparent distress. Behavior is calm, cooperative. Pain: iw Complains of pain in posterior aspect of left knee and left knee. Neuro: Level of Consciousness is awake, alert, obeys commands, Oriented to person, place, time, situation, Moves all extremities. Cardiovascular: Patient's skin is warm and dry. Respiratory: Airway is patent Respiratory effort is even, unlabored, Respiratory pattern is. GI: Abdomen is non-distended. Derm: Skin is intact, is healthy with good turgor. Musculoskeletal: Range of motion: limited in left knee. 12:20 Reassessment: Patient appears in no apparent distress at this time. Patient and/or iw family updated on plan of care and expected duration. Pain level reassessed. Patient is alert, oriented x 3, equal unlabored respirations, skin warm/dry/pink. Vital Signs: 11:17 BP 130 / 94; Pulse 76; Resp 16; Temp 98.1; Pulse Ox 96% on R/A; iw ED Course: 11:15 Patient arrived in ED. ra3 11:18 Buck Langford MD is Attending Physician. sp3 11:20 Triage completed. iw 11:20 Arm band placed on. iw 11:47 Meche Lopez, RN is Primary Nurse. ss 11:47 Patient has correct armband on for positive identification. Bed in low position. ss 12:42 No provider procedures requiring assistance completed. Patient did not have IV access iw during this emergency room visit. 12:49 Knee Left 2 View XRAY In Process Unspecified. EDMS Administered Medications: No medications were administered Medication: 12:42 VIS not applicable for this client. iw Outcome: 12:46 Discharge ordered by . sp3 12:51 Discharged to home ambulatory, ss 13:07 Condition: good ss 13:07 Discharge instructions given to patient, Instructed on discharge instructions, follow up and referral plans. Demonstrated understanding of instructions, follow-up care, 13:07 Patient left the ED. ss Signatures: Dispatcher [employer] EDMS Latesha Mancia RN RN Meche Lopez, CONOR RN Buck Langford MD MD sp3 Fanny White ra3
--- NOTE | 2024-01-31 12:46 | EDPHYS ---
Physician Documentation [facility] Name: Kushal Hernandez Age: 68 yrs Sex: Male : 1955 Arrival Date: 01/31/2024 Time: 11:01 Bed 12 Private MD: ED Physician Buck Langford HPI: 01/30 12:35 This 68 yrs old Male presents to ER via Ambulatory with complaints of Knee sp3 Pain - Left. 12:35 68-year-old male with no past medical history presents with left knee pain. Patient was sp3 initially here for an MRI outpatient but there was an issue with his insurance and was not able to get it performed. He asked to be seen here before he left. Patient states the pain is only there when he walks on it but not at rest. He feels like there is bone grinding on bone. He denies any calf swelling or pain, chest pain, shortness of breath, trauma, prolonged immobilization or any other signs or symptoms on ROS at this time.. Historical: - Allergies: 11:20 No Known Allergies; iw - Home Meds: 11:20 None [Active]; iw - PMHx: 11:20 None; iw - PSHx: 11:20 Cholecystectomy; iw - Social history:: Smoking status: . ROS: 12:40 Constitutional: Negative for fever, chills, and weight loss, Eyes: Negative for injury, sp3 pain, redness, and discharge, ENT: Negative for injury, pain, and discharge, Neck: Negative for injury, pain, and swelling, Cardiovascular: Negative for chest pain, palpitations, and edema, Respiratory: Negative for shortness of breath, cough, wheezing, and pleuritic chest pain, Abdomen/GI: Negative for abdominal pain, nausea, vomiting, diarrhea, and constipation, Back: Negative for injury and pain, Skin: Negative for injury, rash, and discoloration, Neuro: Negative for headache, weakness, numbness, tingling, and seizure, Psych: Negative for depression, anxiety, suicide ideation, homicidal ideation, and hallucinations, Allergy/Immunology: Negative for hives, rash, and allergies, Endocrine: Negative for neck swelling, polydipsia, polyuria, polyphagia, and marked weight changes, Hematologic/Lymphatic: Negative for swollen nodes, abnormal bleeding, and unusual bruising, 12:40 All other systems are negative, Exam: 12:40 Constitutional: This is a well developed, well nourished patient who is awake, alert, sp3 and in no acute distress. Head/Face: Normocephalic, atraumatic. Eyes: Pupils equal round and reactive to light, extra-ocular motions intact. Lids and lashes normal. Conjunctiva and sclera are non-icteric and not injected. Cornea within normal limits. Periorbital areas with no swelling, redness, or edema. Neck: Trachea midline, no thyromegaly or masses palpated, and no cervical lymphadenopathy. Supple, full range of motion without nuchal rigidity, or vertebral point tenderness. No Meningismus. Chest/axilla: Normal chest wall appearance and motion. Nontender with no deformity. No lesions are appreciated. Cardiovascular: Regular rate and rhythm with a normal S1 and S2. No gallops, murmurs, or rubs. Normal PMI, no JVD. No pulse deficits. Respiratory: Lungs have equal breath sounds bilaterally, clear to auscultation and percussion. No rales, rhonchi or wheezes noted. No increased work of breathing, no retractions or nasal flaring. Abdomen/GI: Soft, non-tender, with normal bowel sounds. No distension or tympany. No guarding or rebound. No evidence of tenderness throughout. Back: No spinal tenderness. No costovertebral tenderness. Full range of motion. Skin: Warm, dry with normal turgor. Normal color with no rashes, no lesions, and no evidence of cellulitis. Neuro: Awake and alert, GCS 15, oriented to person, place, time, and situation. Cranial nerves II-XII grossly intact. Motor strength 5/5 in all extremities. Sensory grossly intact. Cerebellar exam normal. Normal gait. Psych: Awake, alert, with orientation to person, place and time. Behavior, mood, and affect are within normal limits. 12:40 Musculoskeletal/extremity: Pain on flexion and extension at the knee. No knee effusion noted. Distal neurovascular exam is normal.. Vital Signs: 11:17 BP 130 / 94; Pulse 76; Resp 16; Temp 98.1; Pulse Ox 96% on R/A; iw MDM: 11:22 Medical Screening Exam initiated sp3 12:41 Data reviewed: vital signs, nurses notes, radiologic studies. ED course: 68-year-old sp3 male with left knee pain. Outpatient MRI is pending. X-ray demonstrates osteoarthritis without other significant findings. We will discharge patient and he can continue his outpatient MRI.. 01/30 11:22 Order name: Knee Left 2 View XRAY; Complete Time: 13:06 sp3 Administered Medications: No medications were administered Disposition Summary: 01/31/24 12:46 Discharge Ordered Notes: Location: Home sp3 Condition: Stable sp3 Diagnosis - Knee pain sp3 Followup: sp3 - With: Private Physician - When: Upon discharge from the Emergency Department - Reason: Continuance of care Discharge Instructions: - Discharge Summary Sheet sp3 - Chronic Knee Pain, Adult sp3 Forms: - Medication Reconciliation Form sp3 - Antibiotic Education sp3 - Prescription Opioid Use sp3 - Patient Portal Instructions sp3 - Leadership Thank You Letter sp3 Signatures: Dispatcher [employer] Latesha Kirk RN RN iw Patel, Setul, MD MD sp3
--- NOTE | 2024-01-31 13:04 | RAD REPORT ---
Exam:Knee Left 2 View HISTORY: Left knee pain FINDINGS: No fracture or dislocation seen [id number] joint effusion. Diffuse edema within the subcutaneous tissues
[2024-01-31 13:56] VITALS: BP 130/94; TEMP 98.1; O2SAT 96
--- OUTSIDE RECORDS SUMMARY | 2024-02-03 08:01 | XMS REPORT | Continuity of Care Document ---
Author Name Unknown Address [address] [facility] [facility] [address] [place] [address] [facility] thconnect Address [address] [place] [address] Care Team Providers Care Machine Records Units Supervisor Name Role Phone Romulo Jarrett Primary Care Physician [phone] SOCORRO KHANNA Attending Clinician Unavailable MICHELLE ISAAC Attending Clinician Unavailable MICHELLE ISAAC Attending Clinician Unavailable Michelle Isaac PA-C Attending Clinician [phone] Doctor Unassigned, [place] Attending Clinician U Socorro Fabian MD Attending Clinician GEORGE CASTILLO Attending Clinician UnavailGEORGE Thayer Attending Clinician Unavailab EUSEBIA Infante Attending Clinician UnavailEusebia Pandya Attending Clinician [phone] ALONZO HUANG Attending Clinician Unavailable Alonzo Huang DO Attending Clinician [phone] SOCORRO KHANNA Admitting Clinician Unavailable ALONZO HUANG Admitting Clinician Unavailable Payers Payer Name Policy Type Policy Number Effective Date Expirati on Date Source MEDICARE PART A \T\ B [id number] 2020 00:00:00 [facility] MEDICARE ADVANTAGE [id number] 2023 00:00:00 [place] [id number] 2022 00:00:00 Problems Condition Name Condition Details Condition Category Status Onset Date Resolution Date Last Treatment Date Treating Clinician Comments Source Other open displaced fracture of tuberosity of left calcaneus, initial encounter Other open displaced fracture of tuberosity of left calcaneus, initial encounter Disease Active 7 00:00: 00 Overview: Formattin g of this note might be different from the original. Added automatic ally from request for surgery [id number] [facility] Closed nondisplac ed fracture of left calcaneus, unspecifie d portion of calcaneus, initial encounter Closed nondisplac ed fracture of left calcaneus, unspecifie d portion of calcaneus, initial encounter Disease Active 08-19 00:00: 00 [facility] Foot infection Foot infection Disease Active 08-19 00:00: 00 [facility] Allergies, Adverse Reactions, Alerts Allergy Name Allergy Type Status Severity Reaction(s) Onset Date Inactive Date Treating Clinician Comments Source NO KNOWN ALLERGIE S Drug Class Active [facility] Social History Social Habit Start Date Stop Date Quantity Comments Source History of tobacco use Smokes tobacco daily [facility] SDOH Alcohol Frequency [facility] History SDOH Alcohol Std Drinks [facility] History SDOH Alcohol Binge [facility] History of Social function 2023-10-30 00:00:00 2023-10-30 00:00:00 [facility] Alcoholic beverage intake 2023-10-30 00:00:00 2023-10-30 00:00:00 Current drinker of alcohol (finding) [facility] Tobacco use and exposure 2023-10-30 00:00:00 2023-10-30 00:00:00 Smokeless tobacco non-user [facility] Tobacco Comment 2023-10-30 00:00:00 2023-10-30 00:00:00 3-4 ciggs a day [facility] Exposure to SARS-CoV-2 (event) 2021-08-22 00:00:00 2021-09-01 14:24:00 Not sure [facility] Alcohol intake 2021-09-01 00:00:00 2021-09-01 00:00:00 Current drinker of alcohol (finding) [facility] Alcohol Comment 2021-08-18 00:00:00 2021-08-18 00:00:00 occasionally [facility] Sex assigned at 1955 00:00:00 1955 00:00:00 [facility] Smoking Status Start Date Stop Date Source Smokes tobacco daily 2023-10-30 00:00:00 [facility] Medications Ordered Medication Name Filled Medication Name Start Date Stop Date Current Medication? Ordering Clinician Indication Dosage Frequency Signature (SIG) Comments Components Source ibuprofen 800 mg tablet 2023-02 00:00: 00 Yes 1mg Jamaal Jose methylPREDN ISolone 4 mg tablets 10-29 00:00: 00 Yes [id number] Take by mouth SEE-INSTRU CTIONS. follow package directions [facility] BROMFENAC(B ) 0.09% OP FREDRICK 03-12 00:00: 00 Yes Jamaal Jose PRED ACETATE 1% OP LANCE 03-11 00:00: 00 Yes Jamaal Jose MOXIFLOXACI N 0.5%(V) FREDRICK 03-11 00:00: 00 Yes Jamaal Jose TAKE 1 TABLET EVERY 8 HOURS WITH FOOD NEEDED. 2022-02 00:00: 00 05-12 00:00 :00 No 800 Jamaal Jose APPLY SPARINGLY TO AFFECTED AREA(S) ONCE DAILY. 2022-02 00:00: 00 05-12 00:00 :00 No 1 Jamaal Jose TAKE 1 CAPSULE BY MOUTH EVERY 8 HOURS UNTIL ALL TAKEN FOR DENTAL INFECTION 09-08 00:00: 00 Yes Jamaal Jose TAKE 1 TABLET TWICE A DAY NEEDED 10-25 00:00: 00 Yes 600 Jamaal Jose mupirocin 2 % ointment 08-18 00:00: 00 Yes [id number] Apply to area(s) 3 (three) times daily. [facility] sulfamethox azole-trime thoprim (BACTRIM DS) 800-160 mg per tablet 08-18 00:00: 00 Yes [id number] 1{tbl} Take 1 tablet by mouth 2 (two) times daily. [facility] Vital Signs Vital Name Observation Time Observation Value Comments S alvarado Body height 2023-10-30 18:23:00 167.6 cm [facility] Body weight 2023-10-30 18:23:00 91.173 kg [facility] BMI 2023-10-30 18:23:00 32.44 kg/m2 [facility] Diastolic blood pressure 2021-09-01 19:28:00 65 mm[Hg] [facility] Heart rate 2021-09-01 19:28:00 67 /min [facility] Body temperature 2021-09-01 19:28:00 35.94 Ita [facility] Body height 2021-09-01 19:28:00 167.6 cm [facility] Body weight 2021-09-01 19:28:00 72.576 kg [facility] BMI 2021-09-01 19:28:00 25.82 kg/m2 [facility] Systolic blood pressure 2021-09-01 19:28:00 107 mm[Hg] [facility] BP Systolic 2024-01-27 17:28:00 140 mm[Hg] Step hen [facility]on BP Diastolic 2024-01-27 17:28:00 89 mm[Hg] Cali phen F [facility]on Weight Measured 2024-01-27 17:28:00 205.80 pounds Jamaal F Damon Height Measured 2024-01-27 17:28:00 66.30 inches Jamaal F [facility]on Body Temperature 2024-01-27 17:28:00 98.60 degrees Jamaal F [facility]on Heart Rate 2024-01-27 17:28:00 83.00 /min Netta en F Damon Respiratory Rate 2024-01-27 17:28:00 18.00 /min Jamaal F Damon Height Measured 2023-11-26 09:31:00 66.30 inches Jamaal F Damon Body Temperature 2023-11-26 09:31:00 97.60 degrees Jamaal F Damon Heart Rate 2023-11-26 09:31:00 77.00 /min Netta en F Damon Respiratory Rate 2023-11-26 09:31:00 17.00 /min Jamaal F Damon BP Systolic 2023-11-26 09:31:00 135 mm[Hg] Step hen F Damon BP Diastolic 2023-11-26 09:31:00 87 mm[Hg] Cali phen F Damon Weight Measured 2023-11-26 09:31:00 200.80 pounds Jamaal F Damon BP Systolic 2023-02-08 10:51:00 Step hen F Damon BP Diastolic 2023-02-08 10:51:00 Cal[place] phen F Damon Weight Measured 2023-02-08 10:51:00 211.20 pounds Jamaal F Damon Height Measured 2023-02-08 10:51:00 66.30 inches Jamaal F Damon Body Temperature 2023-02-08 10:51:00 Jamaal F Damon Heart Rate 2023-02-08 10:51:00 Netta en F Damon Respiratory Rate 2023-02-08 10:51:00 Jamaal F Damon BP Systolic 2022-12-27 11:21:00 137 mm[Hg] Step hen F Damon BP Diastolic 2022-12-27 11:21:00 85 mm[Hg] Cali phen F Damon Weight Measured 2022-12-27 11:21:00 206.00 pounds Jamaal F Damon Height Measured 2022-12-27 11:21:00 66.30 inches Jamaal F Damon Body Temperature 2022-12-27 11:21:00 98.20 degrees Jamaal F Damon Heart Rate 2022-12-27 11:21:00 90.00 /min Netta en F Damon Respiratory Rate 2022-12-27 11:21:00 19.00 /min Jamaal F Damon BP Systolic 2022-12-19 11:16:00 139 mm[Hg] Step hen F Damon BP Diastolic 2022-12-19 11:16:00 89 mm[Hg] Cali phen F Damon Weight Measured 2022-12-19 11:16:00 204.30 pounds Jamaal F Damon Height Measured 2022-12-19 11:16:00 66.30 inches Jamaal F Damon Body Temperature 2022-12-19 11:16:00 98.20 degrees Jamaal F Damon Heart Rate 2022-12-19 11:16:00 84.00 /min Netta en F Damon Respiratory Rate 2022-12-19 11:16:00 18.00 /min Jamaal F Damon BP Systolic 2022-12-18 15:56:00 141 mm[Hg] Step hen F Damon BP Diastolic 2022-12-18 15:56:00 89 mm[Hg] Cali phen F Damon Weight Measured 2022-12-18 15:56:00 205.60 pounds Jamaal F Damon Height Measured 2022-12-18 15:56:00 66.30 inches Jamaal F Damon Body Temperature 2022-12-18 15:56:00 98.40 degrees Jamaal F Damon Heart Rate 2022-12-18 15:56:00 85.00 /min Netta en F Damon Respiratory Rate 2022-12-18 15:56:00 19.00 /min Jamaal F Damon Heart Rate 2022-09-27 10:16:00 76.00 /min Netta en F Damon Respiratory Rate 2022-09-27 10:16:00 24.00 /min Jamaal F Damon BP Systolic 2022-09-27 10:16:00 116 mm[Hg] Step hen F Damon BP Diastolic 2022-09-27 10:16:00 69 mm[Hg] Cali phen F Damon Weight Measured 2022-09-27 10:16:00 209.60 pounds Jamaal F Damon Height Measured 2022-09-27 10:16:00 66.30 inches Jamaal F Damon Body Temperature 2022-09-27 10:16:00 97.30 degrees Jamaal F Damon BP Systolic 2021-08-11 15:02:00 123 mm[Hg] Step hen F Damon BP Diastolic 2021-08-11 15:02:00 68 mm[Hg] Cali phen F Damon Weight Measured 2021-08-11 15:02:00 Jamaal F Damon Height Measured 2021-08-11 15:02:00 Jamaal F Damon Body Temperature 2021-08-11 15:02:00 98.10 degrees Jamaal F Damon Heart Rate 2021-08-11 15:02:00 81.00 /min Netta en F Damon Respiratory Rate 2021-08-11 15:02:00 18.00 /min Jamaal F Damon Procedures Procedure Date / Time Performed Performing Clinicia n Source REFERRAL- REQUEST/RESPONSE 2023-01-07 06:01:00 Doctor Unassigned, [place] [facility] Encounters Start Date/Time End Date/Time Encounter Type Admission Type Attending [facility] Care Facility Care Department Encounter ID Source 2021-09-04 07:52:04 Outpatient SOCORRO NEFF [facility] [id number] [facility] 2024-01-27 17:20:37 2024-01-27 17:20:37 Outpatient [facility] [id number] Jamaal Jose 2024-01-27 00:00:00 2024-01-27 00:00:00 Outpatient Visit [facility] [id number] Jamaal Jose 2024-01-01 15:18:59 2024-01-01 15:18:59 Outpatient [facility] [id number] Jamaal Jose 2023-12-31 15:11:59 2023-12-31 15:11:59 Outpatient [facility] [id number] Jamaal Jose 2023-12-31 00:00:00 2023-12-31 00:00:00 Outpatient Visit [facility] [id number] Jamaal Jose 2023-11-26 09:17:37 2023-11-26 09:17:37 Outpatient [facility] [id number] Jamaal Jose 2023-11-26 00:00:00 2023-11-26 00:00:00 Outpatient Visit [facility] [id number] Jamaal Jose 2023-10-30 13:30:00 2023-10-30 13:51:14 Outpatient R MICHELLE ISAAC SELENA [facility] [id number] [facility] 2023-10-30 13:30:00 2023-10-30 13:51:14 Office Visit Michelle Isaac [facility] [id number] [id number] [id number] [facility] 2023-02-08 10:50:54 2023-02-08 10:50:54 Outpatient [facility] [id number] Jamaal Jose 2023-01-07 11:34:27 2023-01-07 11:34:27 Outpatient [facility] [id number] Jamaal Jose 2023-01-07 00:00:00 2023-01-07 00:00:00 Orders Only Doctor Unassigned, [place] [facility] [id number] [id number] [id number] [id number] [facility] 2022-12-27 11:13:42 2022-12-27 11:13:42 Outpatient [facility] [id number] Jamaal Jose 2021-09-01 14:42:37 2021-09-01 23:59:00 Outpatient R SOCORRO KHANNA [facility] [id number] [facility] 2021-09-01 14:42:37 2021-09-01 23:59:[address] [facility] [place] [facility] [id number] [id number] [facility] 2021-09-01 14:20:00 2021-09-01 15:43:40 Office Visit Debi [facility] [id number] [id number] [facility] 2021-09-01 14:20:00 2021-09-01 14:20:00 Outpatient R SOCORRO KHANNA [facility] [id number] [facility] 2021-09-01 11:00:00 2021-09-01 11:00:00 Outpatient R GEORGE CASTILLO OGECHUKWU [facility] [id number] [facility] 2021-08-18 10:00:00 2021-08-18 11:12:53 Outpatient R GEORGE CASTILLO OGECHUKWU [facility] [id number] [facility] 2021-08-18 10:00:00 2021-08-18 11:12:53 [facility] [id number] [id number] [facility] 2021-08-18 10:00:00 2021-08-18 11:12:53 Outpatient R GEORGE CASTILLO OGECHUKWU [facility] [id number] [facility] 2021-08-16 11:55:00 2021-08-16 12:49:00 Emergency X EUSEBIA [facility] ERT [id number] [facility] 2021-08-16 11:55:00 2021-08-16 12:49:00 [facility] [id number] [id number] [id number] [id number] [facility] 2021-08-16 11:55:00 2021-08-16 12:49:00 Emergency X EUSEBIA [facility] ERT [id number] [facility] 2021-08-07 13:18:00 2021-08-07 15:27:00 Emergency X ALONZO [facility] ERT [id number] [facility] 2021-08-07 13:18:00 2021-08-07 15:27:00 Emergency Alonzo Huang [facility] [id number] [id number] [id number] [id number] [facility] Results Test Description Test Time Test Comments Results Result Co mments Source Jamaal JoseVITAMIN [id number] 00:00:00* Test Item Value Reference Range Interpretation Comme nabila VITAMIN B-12 (test code = 2840) 520 PG/ML Jamaal JoseHEMOGLOBIN [id number] 00:00:00* Test Item Value Reference Range Interpretation Comme nts HEMOGLOBIN A1c (test code = 17315) 5.7 % Jamaal JoseACUTE HEPATITIS [id number] 00:00:00* Test Item Value Reference Range Interpretation Comme nts HEPATITIS A IgM (test code = 23120) NON-REACTIVE HEPATITIS B CORE IgM (test c ode = 4644) NON-REACTIVE HEPATITIS B SURF AG (test co de = 2739) NON-REACTIVE HEPATITIS C ANTIBODY (test c ode = 4675) NON-REACTIVE INTERPRETATION HEPATITIS A: (test code = 2552) (NOTE) INTERPRETATION HEPATITIS B: (test code = 87272) (NOTE) INTERPRETATION HEPATITIS C: (test code = 75026) (NOTE) Jamaal JoseFOLIC [id number] 00:00:00* Test Item Value Reference Range Interpretation Comme nts FOLIC ACID (test code = 2695) 9.0 UG/L Jamaal JoseCBC W/AUTO [id number] 00:00:00* Test Item Value Reference Range Interpretation Comme nts WBC (test code = 1001) 7.0 K/UL RBC (test code = 1002) 5.30 M/UL HEMOGLOBIN (test code = 1003) 15.6 G/DL HEMATOCRIT (test code = 1004) 46.0 % MCV (test code = 1005) 86.8 fL MCH (test code = 1006) 29.4 PG MCHC (test code = 1007) 33.9 G/DL RDW (test code = 1038) 13.0 % NEUTROPHILS (test code = 1008) 48.2 % LYMPHOCYTES (test code = 1010) 38.4 % MONOCYTES (test code = 1011) 8.3 % EOSINOPHILS (test code = 1012) 4.4 % BASOPHILS (test code = 1013) 0.6 % IMMATURE GRANULOCYTES (test code = 1036) 0.1 % NUCLEATED RBCS (test code = 1065) 0.0 /100WBC'S PLATELET COUNT (test code = 1015) 235 K/UL ABSOLUTE NEUTROPHILS (test c ode = 1066) 3.38 K/UL ABSOLUTE LYMPHOCYTES (test c ode = 1067) 2.69 K/UL ABSOLUTE MONOCYTES (test cod e = 1068) 0.58 K/UL ABSOLUTE EOSINOPHILS (test c ode = 1040) 0.31 K/UL ABSOLUTE BASOPHILS (test cod e = 1069) 0.04 K/UL ABS IMMATURE GRANULOCYTES (t est code = 1020) 0.01 K/UL ABS NUCLEATED RBCS (test cod e = 41475) 0.00 K/UL Jamaal JoseRPR REFLEX TO T. PALLIDUM - [id number] 00:00:00* Test Item Value Reference Range Interpretation Comme nts RPR (test code = 45699) NON-REACTIVE RPR TITER (test code = 3500) NOT INDIC. TITER Jamaal JoseVITAMIN [id number] 00:00:00* Test Item Value Reference Range Interpretation Comme nts VITAMIN B-12 (test code = 2840) 520 PG/ML Jamaal JoseHEMOGLOBIN [id number] 00:00:00* Test Item Value Reference Range Interpretation Comme nts HEMOGLOBIN A1c (test code = 45684) 5.7 % Jamaal JoseACUTE HEPATITIS [id number] 00:00:00* Test Item Value Reference Range Interpretation Comme nts HEPATITIS A IgM (test code = 39372) NON-REACTIVE HEPATITIS B CORE IgM (test c ode = 4644) NON-REACTIVE HEPATITIS B SURF AG (test co de = 2739) NON-REACTIVE HEPATITIS C ANTIBODY (test c ode = 4675) NON-REACTIVE INTERPRETATION HEPATITIS A: (test code = 2552) (NOTE) INTERPRETATION HEPATITIS B: (test code = 59724) (NOTE) INTERPRETATION HEPATITIS C: (test code = 41012) (NOTE) Jamaal JoseFOLIC [id number] 00:00:00* Test Item Value Reference Range Interpretation Comme nts FOLIC ACID (test code = 2695) 9.0 UG/L Jamaal JoseCBC W/AUTO [id number] 00:00:00* Test Item Value Reference Range Interpretation Comme nts WBC (test code = 1001) 7.0 K/UL RBC (test code = 1002) 5.30 M/UL HEMOGLOBIN (test code = 1003) 15.6 G/DL HEMATOCRIT (test code = 1004) 46.0 % MCV (test code = 1005) 86.8 fL MCH (test code = 1006) 29.4 PG MCHC (test code = 1007) 33.9 G/DL RDW (test code = 1038) 13.0 % NEUTROPHILS (test code = 1008) 48.2 % LYMPHOCYTES (test code = 1010) 38.4 % MONOCYTES (test code = 1011) 8.3 % EOSINOPHILS (test code = 1012) 4.4 % BASOPHILS (test code = 1013) 0.6 % IMMATURE GRANULOCYTES (test code = 1036) 0.1 % NUCLEATED RBCS (test code = 1065) 0.0 /100WBC'S PLATELET COUNT (test code = 1015) 235 K/UL ABSOLUTE NEUTROPHILS (test c ode = 1066) 3.38 K/UL ABSOLUTE LYMPHOCYTES (test c ode = 1067) 2.69 K/UL ABSOLUTE MONOCYTES (test cod e = 1068) 0.58 K/UL ABSOLUTE EOSINOPHILS (test c ode = 1040) 0.31 K/UL ABSOLUTE BASOPHILS (test cod e = 1069) 0.04 K/UL ABS IMMATURE GRANULOCYTES (t est code = 1020) 0.01 K/UL ABS NUCLEATED RBCS (test cod e = 45678) 0.00 K/UL Jamaal JoseRPR REFLEX TO T. PALLIDUM - [id number] 00:00:00* Test Item Value Reference Range Interpretation Comme nts RPR (test code = 46492) NON-REACTIVE RPR TITER (test code = 3500) NOT INDIC. TITER Jamaal JoseVITAMIN [id number] 00:00:00* Test Item Value Reference Range Interpretation Comme nts VITAMIN B-12 (test code = 2840) 520 PG/ML Jamaal JoseHEMOGLOBIN [id number] 00:00:00* Test Item Value Reference Range Interpretation Comme nts HEMOGLOBIN A1c (test code = 14325) 5.7 % Jamaal JoseACUTE HEPATITIS [id number] 00:00:00* Test Item Value Reference Range Interpretation Comme nts HEPATITIS A IgM (test code = 55462) NON-REACTIVE HEPATITIS B CORE IgM (test c ode = 4644) NON-REACTIVE HEPATITIS B SURF AG (test co de = 2739) NON-REACTIVE HEPATITIS C ANTIBODY (test c ode = 4632) NON-REACTIVE INTERPRETATION HEPATITIS A: (test code = 2552) (NOTE) INTERPRETATION HEPATITIS B: (test code = 29429) (NOTE) INTERPRETATION HEPATITIS C: (test code = 43935) (NOTE) Jamaal JoseFOLIC [id number] 00:00:00* Test Item Value Reference Range Interpretation Comme nts FOLIC ACID (test code = 2695) 9.0 UG/L Jamaal JoseCBC W/AUTO [id number] 00:00:00* Test Item Value Reference Range Interpretation Comme nts WBC (test code = 1001) 7.0 K/UL RBC (test code = 1002) 5.30 M/UL HEMOGLOBIN (test code = 1003) 15.6 G/DL HEMATOCRIT (test code = 1004) 46.0 % MCV (test code = 1005) 86.8 fL MCH (test code = 1006) 29.4 PG MCHC (test code = 1007) 33.9 G/DL RDW (test code = 1038) 13.0 % NEUTROPHILS (test code = 1008) 48.2 % LYMPHOCYTES (test code = 1010) 38.4 % MONOCYTES (test code = 1011) 8.3 % EOSINOPHILS (test code = 1012) 4.4 % BASOPHILS (test code = 1013) 0.6 % IMMATURE GRANULOCYTES (test code = 1036) 0.1 % NUCLEATED RBCS (test code = 1065) 0.0 /100WBC'S PLATELET COUNT (test code = 1015) 235 K/UL ABSOLUTE NEUTROPHILS (test c ode = 1066) 3.38 K/UL ABSOLUTE LYMPHOCYTES (test c ode = 1067) 2.69 K/UL ABSOLUTE MONOCYTES (test cod e = 1068) 0.58 K/UL ABSOLUTE EOSINOPHILS (test c ode = 1040) 0.31 K/UL ABSOLUTE BASOPHILS (test cod e = 1069) 0.04 K/UL ABS IMMATURE GRANULOCYTES (t est code = 1020) 0.01 K/UL ABS NUCLEATED RBCS (test cod e = 39900) 0.00 K/UL Jamaal JoseSARS-CoV-2 (COVID-19), RT-PCR/[id number] 18:23:29* Test Item Value Reference Range Interpretation Comments SARS-CoV-2 INTERPRETATION (test code = 72080) NEGATIVE SEE NOTE SARS-CoV-2 R NA NOT DETECTEDNegative results do not preclude SARS-CoV-2 infection and should notbe used as the sole basis for patient management decisions. Negativeresults must be combined with clinical observations, patient history,and epidemiological information. Optimum specimen types and timingfor peak viral levels during infections caused by SARS-CoV-2 have notbeen determined. Collection of multiple specimens or types ofspecimens may be necessary to detect virus. Improper specimencollection and handling, sequence variability under primers/probes,or organism present below the limit of detection may lead to falsenegative results. Positive and negative predictive values oftesting are highly dependent on prevalence. False negative testresults are more likely when prevalence is high. SOURCE (test code = 06404) NOT SPECIFIED Note: Methodolog y is Farzana Cornelius Real-Time RT-PCR. The expected result or reference range is NEGATIVE (Not Detected). For more information regarding COVID-19 testing to include clinicalinformation, methodology detail, intended use, FDA authorization andrecommended fact sheets for patients or healthcare providers, see [employer] Announcement: SARS-CoV-2 (COVID-19) by NAAT at URL below (note,fact sheets are provided by method given in report:[email or web address] Alternatively, see downloadable PDF fact sheet at:[email or web address] OTHERWISE INDICATED, ALL TESTING PERFORMED [facility] [employer] [address] [place] [id number] MANAGER LSW: HERBERT PARK M.D. CLIA NUMBER [id number] [facility] [place] [id number] SARS-CoV-2 (COVID-19) by RT-PCR (HIGH RISK)2021-03-04 00:00:00* Test Item Value Reference Range Interpretation Comme nts SARS-CoV-2 INTERPRETATION (t est code = 19310) NEGATIVE SOURCE (test code = 31493) NOT SPECIFIED Jamaal F [id number] (COVID-19) by RT-PCR (HIGH RISK)2021-03-04 00:00:00* Test Item Value Reference Range Interpretation Comme nts SARS-CoV-2 INTERPRETATION (t est code = 67136) NEGATIVE SOURCE (test code = 63429) NOT SPECIFIED Jamaal YepezRS-CoV-2 (COVID-19) by RT-PCR (HIGH RISK)2021-03-04 00:00:00* Test Item Value Reference Range Interpretation Comme nts SARS-CoV-2 INTERPRETATION (t est code = 69044) NEGATIVE SOURCE (test code = 40420) NOT SPECIFIED Jamaal Jose
== END 2024-01-31 13:07 | disposition home or self-care (01) ==
LOC: ER 11:01
DX: M25.562 Pain in left knee (principal)
CPT/HCPCS: 99282